=== PATIENT | female | born 1985 | race African-American/Black ===

== ENCOUNTER 2022-10-07 16:55 | Emergency (ER) | payer MEDICAID, OTHER ==
[~2022-10-07] VITALS: Ht 160 cm; Wt 54.0 kg
[2022-10-07 17:05] VITALS: BP 130/67
[2022-10-07 17:32] LABS: HEMATOCRIT. 28.3 % (36.0-48.0); HEMOGLOBIN. 8.9 g/dL (12.0-16.0); MEAN CORPUSCULAR HEMOGLOBIN 22.7 pg (28.0-32.0); MEAN CORPUSCULAR VOLUME 72.1 fL (81.0-99.0); MEAN PLATELET VOLUME 8.4 fl (7.4-10.4); PLATELET 362 x1000/uL (130-400); RED BLOOD CELL COUNT 3.92 mill/uL (4.2-5.4); RED CELL DISTRIBUTION WIDTH 23.5 % (11.6-14.6)
[2022-10-07 17:40] LABS: CHLORIDE 111 mEq/L (98-107)
[2022-10-07 17:46] LABS: ETHANOL BLOOD < 10 mg/dL
[2022-10-07 17:54] LABS: HCG SCREEN NEGATIVE
[2022-10-07 18:46] LABS: PLATELET ESTIMATE NORMAL
== END 2022-10-07 21:22 | disposition left against medical advice (07) ==
LOC: ER 16:55
DX: R10.9 Unspecified abdominal pain (principal); Z98.890 Other specified postprocedural states
CPT/HCPCS: 36415; 74176; 80053; 80320; 84703; 85025; 99283; G0480